=== PATIENT | female | born 1975 | race Caucasian/White ===

== ENCOUNTER → 2017-12-28 12:11 | Outpatient (CLI) | payer OTHER, SELFPAY ==
--- NOTE | 2017-12-28 12:15 | RAD_ITS ---
STUDY: X-RAY - ACUTE ABDOMINAL SERIES REASON FOR EXAM: Female, 42 years old. Abdominal pain for one month. TECHNIQUE: Single view of the chest. Supine, view(s) of the abdomen were obtained. COMPARISON: None. FINDINGS: The lungs are clear and expanded. Normal size heart. Normal mediastinum and peyman. Normal visualized pulmonary arteries. Normal visualized aortic arch and descending thoracic aorta. There is a non-specific bowel gas pattern. Feces is seen throughout the colon. There is no small bowel dilatation or evidence for obstruction. The soft tissue structures of the abdomen and pelvis are unremarkable. Minimal dextroscoliosis of the thoracolumbar spine RAD/Acute Abdomen Inc Chest IMPRESSION: 1. No acute cardiopulmonary disease. 2. No evidence of acute intra-abdominal process. Electronically Signed: Navi Jovel DO at 19:21 EDT Tel [phone], Service support ,
== END ==
PROVIDERS: Family Provider Internal Medicine; PCP Internal Medicine; Visit Provider Family Medicine
DX: R10.9 Unspecified abdominal pain (principal)
CPT/HCPCS: 74022